=== PATIENT | female | born 1950 | race African-American/Black ===

== ENCOUNTER 2016-11-13 06:58 | Day surgery (SDC) | payer MEDICARE ==
--- NOTE | 2016-11-10 16:31 | Pre-op HX & Phy Repo 2 SIG ---
DATE OF ADMISSION: 11/13/2016 DATE OF SURGERY: 11/13/2016 PREOPERATIVE DIAGNOSIS: Vitreous hemorrhage with traction, left eye. PROCEDURES TO BE PERFORMED: 1. Pars plana vitrectomy. 2. Membrane peeling. 3. Endolaser. 4. Avastin injection, left eye. BRIEF NOTE: This is the first [facility] admission for this patient who is a very nice 66-year-old lady with longstanding diabetic eye disease. She had a history of cataract surgery done in both eyes in the past as well as retinal laser done on both eyes. She has noted worsening of the vision in the left eye and was found to have a significant vitreous hemorrhage with traction. PAST MEDICAL HISTORY: Remarkable for diabetes for at least 30 years. She also has hypertension and elevated cholesterol and thyroid disease. MEDICATIONS: She is maintained on NovoLog, Lantus, Linzess, and gabapentin. ALLERGIES: She has no known allergies. SOCIAL HISTORY: She does not smoke or drink. PHYSICAL EXAMINATION: Best vision at the time of admission was 20/30, -2 on the right eye, counting fingers on the left with pressures of 14 in either eye. The anterior segment showed posterior chamber lenses in either eye. There was no rubeosis. Fundus examination of the right eye showed a mild vitreous hemorrhage down below. There was traction along the supratemporal arcade and on the vertical line between both major arcades temporally. The retina was attached. Extensive peripheral laser was noted. The left fundus showed a very dense vitreous hemorrhage. There was a similar pattern of traction, but the macula appeared attached. A moderate pattern of laser was seen in the periphery. ASSESSMENT: Severe proliferative diabetic retinopathy, both eyes with dense vitreous hemorrhage, left eye. PLAN: The plan is to perform a vitrectomy with membrane dissection, endolaser, and Avastin injection on the left. The risks and benefits of surgery gone over the patient with potential infection, hemorrhage, glaucoma, remote possibility of loss of the eye. The risk of anesthesia was discussed. The patient understands and consents to surgery, which will be performed on Sunday. Raj Coe M.D. DR: CLAUDE JOB#: [id number] CC:
[2016-11-13] VITALS (11 sets, daily range): BP systolic 129–182; BP diastolic 55–86
[~2016-11-13] VITALS: Ht 157.5 cm; Wt 81.6 kg
[~2016-11-13 06:58] MED LIST: Avastin 10mg Inj IVITRE ONE; BSS 15ml BTL ONE; BSS 500ml btl ONE; Bupivacaine 0.75% 30ml vial INJ ONE; Cyclopentolate 1% Opth Sol ONE; Dexamethasone 4mg/ml vial ONE; EPINEPHrine 1mg/1ml Amp ONE; Flurbiprofen 0.03% Opth Sol 2.5ml ONE; Kenalog-10 5ml Inj ONE; Kenalog-40 1ml Vial ONE; Lidocaine 2% MPF 5ml Vial INJ ONE; Maxitrol Opth Oint 3.5gm ONE; Phenylephrine 2.5% Op Soln ONE; Povidone-Iodine 5% opth solution ONE; Pred Forte 1% Opth Susp 1ml ONE; Sodium Hyaluronate 10 mg/ml 0.85ml ONE; Tetracaine 0.5% Opth Soln ONE; Vigamox Opth Soln ONE
[2016-11-13] MEDS: Phenylephrine 2.5% Op Soln LEFT EYE SCH ×3 (07:21→07:38)
[2016-11-13] MEDS: Cyclopentolate 1% Opth Sol LEFT EYE SCH ×3 (07:21→07:38)
[2016-11-13] MEDS: Flurbiprofen 0.03% Opth Sol 2.5ml LEFT EYE SCH ×3 (07:22→07:38)
[2016-11-13] MEDS: Vigamox Opth Soln LEFT EYE SCH ×3 (07:22→07:38)
--- NOTE | 2016-11-13 07:23 | Pre-Procedure Note/Attestation ---
Pre-Procedure Note/Attestation Complete Prior to Procedure Planned Procedure: left Procedure Narrative: PPV, membrane peel, endolaser, Kenalog injection L eye Indications for Procedure Pre-Operative Diagnosis: Vitreous hemorrhage with retinal traction L eye Attestation I attest that I discussed the nature of the procedure; its benefits; risks and complications; and alternatives (and the risks and benefits of such alternatives ), prior to the procedure, with the patient (or the patient's legal product representative). I attest that, if there was a reasonable possibility of needing a blood transfusion, the patient (or the patient's legal product representative) was given the [facility] Services standardized written summary, pursuant to the Abdi Damaris Blood Safety Act ([place] Health and Safety Code # 1645, as amended). I attest that I re-evaluated the patient just prior to the surgery and that there has been no change in the patient's H&P, except as documented below: TERRY DHALIWAL Nov 13, 2016 07:23
[2016-11-13] MEDS ORDERED: Norco 5mg/325mg tab ORAL PRN (07:30)
[2016-11-13] MEDS ORDERED: DiphenhydrAMINE 50mg/ml Inj ONE (07:48)
--- NOTE | 2016-11-13 07:52 | Anethesia Preoperative Eval ---
Anesthesia Pre-op PMH/ROS General Date of Evaluation: Nov 13, 2016 Time of Evaluation: 07:50 Anesthesiologist: mickey ASA Score: ASA 3 Mallampati Score Class I : Soft palate, uvula, fauces, pillars visible Class II: Soft palate, uvula, fauces visible Class III: Soft palate, base of uvula visible Class IV: Only hard plate visible Mallampati Classification: Class III Surgeon: iona Diagnosis: left eye hemorrage Surgical Procedure: pars plana virtrectomy Anesthesia History: none Family History: no anesthesia problems Allergies: Coded Allergies: No Known Allergies (Unverified , 11/07/16) Medications: see eMAR Past Medical History Cardiovascular: Reports: HTN Pulmonary: Denies: COPD, INNA, asthma, other Gastrointestinal/Genitourinary: Denies: CRI, ESRD, GERD, other Neurologic/Psychiatric: Denies: CVA, TIA, dementia, depression/anxiety, other Endocrine: Reports: DM HEENT: Denies: NOORVIK (L), NOORVIK (R), cataract (L), cataract (R), glaucoma, other Hematology/Immune: Denies: DVT, anemia, bleeding disorder, other Musculoskeletal/Integumentary: Denies: DDD, DJD, OA, RA, edema, other Other: obesity Anesthesia Pre-op Phys. Exam Physician Exam Last Vital Signs Date Time Temp Pulse Resp B/P Pulse Ox O2 Delivery O2 Flow Rate FiO2 11/13/16 07:24 97.7 87 17 182/86 100 Room Air Constitutional: NAD Neurologic: CN 2-12 intact Cardiovascular: RRR Respiratory: CTA Gastrointestinal: S/NT/ND Airway Exam Mallampati Classification 3 MO: full Neck: thick ROM: full Dentures: no lower, no upper Anesthesia Pre-op A/P Studies Pre-op Studies: EKG - sr Risk Assessment & Plan Plan: mac Pre-Antibiotics Drug: none CAROL JOE ANIMAL TREATMENT INVESTIGATOR Nov 13, 2016 07:52
[2016-11-13] MEDS ORDERED: CRESTOR10 M2 ORAL (07:55)
[2016-11-13] MEDS ORDERED: HYDRALAZINE HCL25 M1 ORAL (07:55)
[2016-11-13] MEDS ORDERED: AMLODIPINE BESY10 MG ORAL (07:55)
[2016-11-13] MEDS ORDERED: DOCUSATE SODIU100 MG ORAL (07:55)
[2016-11-13] MEDS ORDERED: NOVOLOG100 UNITS1 (07:55)
[2016-11-13] MEDS ORDERED: LANTUS SOL100 UNIT/1 SUBQ (07:55)
[2016-11-13] MEDS ORDERED: GABAPENTIN300 MG ORAL (07:55)
[2016-11-13] MEDS ORDERED: METFORMIN HCL500 M1 ORAL (07:55)
[2016-11-13] MEDS ORDERED: BENAZEPRIL HCL40 MG ORAL (07:55)
[2016-11-13] MEDS ORDERED: LEVOTHYROXINE75 MCG ORAL (07:55)
[2016-11-13] MEDS ORDERED: GLIMEPIRIDE1 MG ORAL (07:55)
[2016-11-13] MEDS ORDERED: LINZESS145 MCG PO (07:55)
[2016-11-13] MEDS ORDERED: fentaNYL 100 mcg/2 mL IV PRN (08:00)
[2016-11-13] MEDS ORDERED: fentaNYL 100 mcg/2 mL IV ONE (08:00)
[2016-11-13] MEDS ORDERED: Lidocaine 1% MPF 10mg/ml 5ml ONE (08:00)
[2016-11-13] MEDS ORDERED: Sterile Water Irrig 1000ml IRRIG ONE (08:00)
[2016-11-13] MEDS ORDERED: Pred Forte 1% Opth Susp 1ml LEFT EYE SCH (08:00)
[2016-11-13] MEDS ORDERED: LR 1000ml ONE (08:00)
[2016-11-13] MEDS ORDERED: NS Irrig 1000ml ONE (08:00)
[2016-11-13] MEDS ORDERED: Midazolam 2mg/2ml Inj ONE (08:00)
[2016-11-13] MEDS ORDERED: Propofol 10mg/ml 20ml IV ONE (08:00)
[2016-11-13] MEDS ORDERED: Indocyanine Green 25mg Inj INJ ONE (08:45)
--- NOTE | 2016-11-13 09:27 | Pre-Procedure Note/Attestation ---
Pre-Procedure Note/Attestation Complete Prior to Procedure Planned Procedure: left Indications for Procedure Pre-Operative Diagnosis: Vitreous hemorrhage with retinal traction L eye Attestation I attest that I discussed the nature of the procedure; its benefits; risks and complications; and alternatives (and the risks and benefits of such alternatives ), prior to the procedure, with the patient (or the patient's legal abrasives sales representative). I attest that, if there was a reasonable possibility of needing a blood transfusion, the patient (or the patient's legal abrasives sales representative) was given the [facility] Services standardized written summary, pursuant to the Abdi Turin Blood Safety Act ([place] Health and Safety Code # 1645, as amended). I attest that I re-evaluated the patient just prior to the surgery and that there has been no change in the patient's H&P, except as documented below: TERRY DHALIWAL Nov 13, 2016 09:26
--- NOTE | 2016-11-13 09:31 | Brief Operative Note ---
Immediate Post Operative Note Operative Note Chief Complaint: Blurred vision L eye Pre-op Diagnosis: Vitreous hemorrhage with retinal traction L eye Procedure: PPV, membrane peel, ICG injection, Kenalog injection, Endolaser (1392 spots), Avastin injection 1.25 mg, gas-fluid exchange (24% SF-6 L eye Post-op Diagnosis: same as pre-op plus - Stage IV macular hole noted when blood and posterior traction removed Surgeon: Carolin Bonded Strand Operator: Mckayla Anesthesiologist: Olive Bolden CRNA Anesthesia: MAC Specimen: none Complications: none Condition: stable Estimated Blood Loss: none Implant(s) used?: No - Stage IV macular hole noted and treated appropriately during surgery TERRY DHALIWAL Nov 13, 2016 09:31
--- NOTE | 2016-11-13 12:52 | 48 Hour Post Anesthesia Eval ---
Post Anesthesia Evaluation Procedure: pars plana virtectomy Date of Evaluation: Nov 13, 2016 Time of Evaluation: 12:51 Blood Pressure Systolic: 130 0: 60 Pulse Rate: 70 Respiratory Rate: 14 O2 Sat by Pulse Oximetry: 100 Airway: patent Nausea: No Vomiting: No Hydration Status: adequate Cardiopulmonary Status: stable Mental Status/LOC: patient returned to baseline Post-Anesthesia Complications: none Follow-up care needed: N/A CAROL JOE CRNA Nov 13, 2016 12:52
--- NOTE | 2016-11-13 12:53 | Immediate Post-Op Evaluation ---
Immediate Post-Op Evalulation Immediate Post-Op Evalulation Procedure: pars plana virtectomy Date of Evaluation: Nov 13, 2016 Time of Evaluation: 09:25 IV Fluids: 500 Blood Pressure Systolic: 137 Blood Pressure Diastolic: 73 Pulse Rate: 74 Respiratory Rate: 14 O2 Sat by Pulse Oximetry: 99 Nausea: No Vomiting: No Complications none Patient Status: awake Hydration Status: adequate Drug: none CAROL JOE CRNA Nov 13, 2016 12:53
--- NOTE | 2016-11-13 13:45 | Operative Note - Dictated ---
DATE OF OPERATION: 11/13/2016 PREOPERATIVE DIAGNOSIS: Vitreous hemorrhage with traction, left eye. POSTOPERATIVE DIAGNOSES: Vitreous hemorrhage with traction, left eye with stage IV macular hole discovered after blood was removed. PROCEDURES PERFORMED: 1. Pars plana vitrectomy. 2. Membrane peel. 3. Kenalog injection. 4. ICG injection. 5. Gas fluid exchange. 6. Avastin injection, left eye. SURGEON: Raj Coe M.D. WARDROBE CONSULTANT: Dr. Be Block. ANESTHESIOLOGIST: Olive Cancino, nurse real estate transaction manager. JUSTIFICATION FOR SURGERY: This 66-year-old lady with a long history of diabetes developed a nonclearing vitreous hemorrhage with decreased vision in the left eye. BRIEF NOTE: The patient was brought to the operating room, placed on operating room table in supine position. After a time-out was performed and agreed upon by the staff and initial monitoring secured by nurse Cancino, retrobulbar and Van Lint blocks were given in the standard way. When the blocks have taken effect, she was prepped and draped in normal manner. A lid speculum was inserted into the left eye. Using a 23-gauge trocar system, cannulas were placed in all except infranasal quadrant. Infusion secured inferotemporally. Vitrectomy was begun posterior to the intra-ocular lens. Adhesions between vitreous and capsule were removed and a central core vitrectomy completed. Using Kenalog to identify the vitreous, peripheral vitrectomy was done leaving a small vitreous skirt and posterior attachments of vitreous to retina were also released. A posterior viewing lens was then inserted and traction noted along the major arcades and overlying the optic nerve were gently dissected and removed with a cutter and forceps. During the dissection it was noted that there was a pre-existing stage IV macular hole. It was decided that the hole should be treated during this procedure to facilitate recovery of vision. Prior to treating the hole, the Endolaser was brought into the eye and a power of 0.3 rhodes duration 0.2 seconds, a total of 1392 lesions were applied in a broad band in the periphery where the retina was likely treated and also surrounding the areas of traction. With posterior viewing lens in place, ICG dye diluted in D5 was injected onto the posterior pole. A total of two drops were used, staining was effected and all the residual ICG was removed. There was noted to be partially disrupted internal limiting lamina. The forceps were used to gain control on the ends of this membrane, which was peeled to form roughly a 3 disc diameter area overlying the macula and excluding the fovea. No problems were encountered. The Anuel commercial hvac technician was then introduced and, with gentle manipulation, the edges of the hole were brought together in a circular fashion and closed. An air-fluid exchange was then performed followed by a gas-gas exchange using a 24% mixture of SF6. The peripheral scleral depression showed no breaks, tears, or detachments. The superior cannulas were removed from the eye and these wounds were closed with a single suture of 8-0 Vicryl. The eye was inflated to normal tension and the infusion line removed after which Avastin 1.25 mg was injected. The gas line was reattached and the eye again brought to normal tension after which the last cannula was removed. This wound was also secured with 8-0 Vicryl. Subconjunctival Decadron and gentamicin were then injected and Maxitrol and atropine ointments were instilled. The eye was patched and shielded and the patient was taken to recovery in excellent condition, there were no complications, but please note that during the procedure a macular hole was discovered, which was not seen preoperatively due to the dense vitreous hemorrhage. This was repaired appropriately. s Raj Coe M.D. DR: CLAUDE JOB#: [id number] CC: NELA
== END 2016-11-13 11:40 | disposition home or self-care (01) ==
LOC: SUR 06:58
DX: H43.12 Vitreous hemorrhage, left eye (principal); E11.3522 Type 2 diabetes mellitus with proliferative diabetic retinopathy with traction retinal detachment involving the macula, left eye; Z79.4 Long term (current) use of insulin; I10 Essential (primary) hypertension; E78.00 Pure hypercholesterolemia, unspecified; E07.9 Disorder of thyroid, unspecified; E66.9 Obesity, unspecified; Z68.32 Body mass index [BMI] 32.0-32.9, adult
CPT/HCPCS: 67042; 82962; J0171; J1100; J1200; J2250; J2704; J3010; J3301; J3470; J3490; J7120; J9035; 94003; 94150

== ENCOUNTER 2017-01-22 05:17 | Day surgery (SDC) | payer MEDICARE ==
--- NOTE | 2017-01-19 21:30 | Pre-op HX & Phy Repo 2 SIG ---
DATE OF ADMISSION: 01/22/2017 DATE OF SURGERY: 01/22/2017 PREOPERATIVE DIAGNOSIS: Recurrent vitreous hemorrhage, left eye. Brief Note: This is the second [facility] admission form this patient, who is a very nice 66-year-old lady with a long history of severe proliferative diabetic retinopathy. The patient had a vitrectomy performed on the left eye on 11/03/2016, but has had recurrent hemorrhaging and was admitted for a washout. Past Ocular History: Also remarkable for cataract surgery, which was previously done in both eyes as well as extensive panretinal laser bilaterally. Medical History: Notable for diabetes for at least 30 years as well as hypertension and elevated cholesterol as well as thyroid disease. ALLERGIES: She has no known allergies. Medications: She is currently on amlodipine, NovoLog, Lantus, and gabapentin. Physical Examination: Best vision at the time of admission was 20/40 in the right eye and hand motions in the left with pressures of 14 and 13. The anterior segments appeared quiet. There were posterior chamber lenses in either eye. Fundus of the right eye showed traction along the supratemporal arcade and out temporally. No vitreous hemorrhage was seen down below. The left fundus was poorly seen secondary to a dense vitreous hemorrhage. An ultrasound done on the left eye at the time of the last visit showed a dense vitreous hemorrhage without evidence of retinal detachment. Assessment: Proliferative diabetic retinopathy with recurrent vitreous hemorrhage, left eye. Plan: The plan is to do a pars plana vitrectomy with washout on the left eye. Endolaser and Avastin will be done as needed. The risks and benefits of surgery were gone over with the patient including potential for infection, recurrent hemorrhage, glaucoma, and remote possibility of loss of the eye. The risk of anesthesia was discussed. The patient understands and consents to the surgery, which will be performed on Sunday. Raj Coe M.D. DR: JOHN JOB#: [id number] CC:
[~2017-01-22] VITALS: Ht 157.5 cm; Wt 81.6 kg
[2017-01-22] VITALS (8 sets, daily range): BP systolic 117–172; BP diastolic 62–81
[~2017-01-22 05:17] MED LIST changes: +AMLODIPINE BESY10 MG ORAL; -Avastin 10mg Inj IVITRE ONE; +BENAZEPRIL HCL40 MG ORAL; -BSS 15ml BTL ONE; -BSS 500ml btl ONE; -Bupivacaine 0.75% 30ml vial INJ ONE; +CRESTOR10 M2 ORAL; -Cyclopentolate 1% Opth Sol ONE; +DOCUSATE SODIU100 MG ORAL; -Dexamethasone 4mg/ml vial ONE; -EPINEPHrine 1mg/1ml Amp ONE; -Flurbiprofen 0.03% Opth Sol 2.5ml ONE; +GABAPENTIN300 MG ORAL; +GLIMEPIRIDE1 MG ORAL; +HYDRALAZINE HCL25 M1 ORAL; -Kenalog-10 5ml Inj ONE; -Kenalog-40 1ml Vial ONE; +LANTUS SOL100 UNIT/1 SUBQ; +LEVOTHYROXINE75 MCG ORAL; +LINZESS145 MCG PO; -Lidocaine 2% MPF 5ml Vial INJ ONE; +METFORMIN HCL500 M1 ORAL; -Maxitrol Opth Oint 3.5gm ONE; +NOVOLOG100 UNITS1; -Phenylephrine 2.5% Op Soln ONE; -Povidone-Iodine 5% opth solution ONE; -Pred Forte 1% Opth Susp 1ml ONE; -Sodium Hyaluronate 10 mg/ml 0.85ml ONE; -Tetracaine 0.5% Opth Soln ONE; -Vigamox Opth Soln ONE
[2017-01-22] MEDS ORDERED: Avastin 10mg Inj IVITRE ONE (06:00)
[2017-01-22] MEDS ORDERED: Pred Forte 1% Opth Susp 1ml LEFT EYE SCH (06:00)
[2017-01-22] MEDS ORDERED: Flurbiprofen 0.03% Opth Sol 2.5ml LEFT EYE SCH (06:00)
--- NOTE | 2017-01-22 06:29 | Pre-Procedure Note/Attestation ---
Pre-Procedure Note/Attestation Complete Prior to Procedure Planned Procedure: left Procedure Narrative: PPV, endolaser, Avastin injection L eye Indications for Procedure Pre-Operative Diagnosis: Vitreous hemorrhage L eye, recurrent Attestation I attest that I discussed the nature of the procedure; its benefits; risks and complications; and alternatives (and the risks and benefits of such alternatives ), prior to the procedure, with the patient (or the patient's legal open claims representative). I attest that, if there was a reasonable possibility of needing a blood transfusion, the patient (or the patient's legal open claims representative) was given the [facility] Services standardized written summary, pursuant to the Abdi Damaris Blood Safety Act ([place] Health and Safety Code # 1645, as amended). I attest that I re-evaluated the patient just prior to the surgery and that there has been no change in the patient's H&P, except as documented below: TERRY DHALIWAL Jan 22, 2017 06:29
[2017-01-22] MEDS: Vigamox Opth Soln 3ml LEFT EYE SCH ×3 (06:43→07:00)
[2017-01-22] MEDS: Phenylephrine 2.5% Op 2ml Soln LEFT EYE SCH ×3 (06:43→07:00)
[2017-01-22] MEDS: Cyclopentolate 1% Opth Sol 2ml LEFT EYE SCH ×3 (06:43→06:59)
[2017-01-22] MEDS: Ketorolac Tromethamine Opth 5ml Soln LEFT EYE SCH ×3 (06:44→07:00)
[2017-01-22 06:50] LABS: BASOPHILS % (AUTO) 0.7 % (0.0-2.0); EOSINOPHILS % (AUTO) 1.4 % (0.0-3.0); LYMPHOCYTES % (AUTO) 44.8 % (20.0-45.0); MEAN CORPUSCULAR HEMOGLOBIN 29.4 PG (27.0-31.0); MEAN CORPUSCULAR HGB CONC 33.8 G/DL (32.0-36.0); MEAN CORPUSCULAR VOLUME 87 FL (80-99); MEAN PLATELET VOLUME 6.5 FL (6.5-10.1); MONOCYTES % (AUTO) 8.2 % (1.0-10.0); PLATELET COUNT 321 K/UL (150-450); RED BLOOD COUNT 4.11 M/UL (4.20-5.40); RED CELL DISTRIBUTION WIDTH 11.7 % (11.6-14.8)
[2017-01-22] MEDS ORDERED: Kenalog-40 1ml Vial ONE (07:09)
[2017-01-22] MEDS ORDERED: Maxitrol Opth Oint 3.5gm ONE (07:09)
[2017-01-22] MEDS ORDERED: BSS 500ml btl ONE (07:09)
[2017-01-22] MEDS ORDERED: Dexamethasone 4mg/ml vial ONE (07:10)
[2017-01-22] MEDS ORDERED: EPINEPHrine 1mg/1ml Amp ONE (07:10)
[2017-01-22] MEDS ORDERED: Kenalog-10 5ml Inj ONE (07:10)
[2017-01-22] MEDS ORDERED: Povidone-Iodine 5% opth solution ONE (07:10)
[2017-01-22] MEDS ORDERED: Tetracaine 0.5% Opth 4ml Soln ONE (07:10)
[2017-01-22] MEDS ORDERED: Bupivacaine 0.75% 30ml vial INJ ONE (07:11)
[2017-01-22] MEDS ORDERED: Lidocaine 2% MPF 5ml Vial INJ ONE (07:11)
[2017-01-22] MEDS ORDERED: BSS 15ml BTL ONE (07:11)
[2017-01-22] MEDS ORDERED: Sodium Hyaluronate 10 mg/ml 0.85ml ONE (07:11)
[2017-01-22 07:13] LABS: ANION GAP 10 (5-15); CALCIUM 9.1 MG/DL (8.5-10.1); CARBON DIOXIDE 25 MMOL/L (21-32); CHLORIDE 100 MMOL/L (98-107); CREATININE 1.3 MG/DL (0.55-1.30); GLOMERULAR FILTRATION RATE 49.6 mL/min (>60); POTASSIUM 3.3 MMOL/L (3.5-5.1); SODIUM 135 MMOL/L (136-145)
--- NOTE | 2017-01-22 07:20 | Anethesia Preoperative Eval ---
Anesthesia Pre-op PMH/ROS General Date of Evaluation: Jan 22, 2017 Time of Evaluation: 07:21 Anesthesiologist: Shen ASA Score: ASA 3 Mallampati Score Class I : Soft palate, uvula, fauces, pillars visible Class II: Soft palate, uvula, fauces visible Class III: Soft palate, base of uvula visible Class IV: Only hard plate visible Mallampati Classification: Class III Surgeon: Carolin Diagnosis: Vitreous Hemorrage, OS Surgical Procedure: Vitrectomy OS Anesthesia History: none Family History: no anesthesia problems Allergies: Coded Allergies: No Known Allergies (Unverified , 11/07/16) Medications: see eMAR Past Medical History Cardiovascular: Reports: HTN, other - HL Endocrine: Reports: DM, hypothyroidism HEENT: Reports: cataract (L), cataract (R) Hematology/Immune: Reports: anemia Other: obesity - BMI 34 Anesthesia Pre-op Phys. Exam Physician Exam Last Vital Signs Date Time Temp Pulse Resp B/P (MAP) Pulse Ox O2 Delivery O2 Flow Rate FiO2 01/22/17 05:42 98.2 83 17 172/81 97 Room Air Constitutional: NAD Neurologic: CN 2-12 intact Cardiovascular: RRR Respiratory: CTA Gastrointestinal: S/NT/ND Airway Exam Mallampati Score: Class III MO: limited ROM: limited Teeth: missing, intact Anesthesia Pre-op A/P Labs Hematology Test 01/22/17 05:45 White Blood Count 9.0 K/UL (4.8-10.8) Red Blood Count 4.11 M/UL (4.20-5.40) L Hemoglobin 12.1 G/DL (12.0-16.0) Hematocrit 35.8 % (37.0-47.0) L Mean Corpuscular Volume 87 FL (80-99) Mean Corpuscular Hemoglobin 29.4 PG (27.0-31.0) Mean Corpuscular Hemoglobin Concent 33.8 G/DL (32.0-36.0) Red Cell Distribution Width 11.7 % (11.6-14.8) Platelet Count 321 K/UL (150-450) Mean Platelet Volume 6.5 FL (6.5-10.1) Neutrophils (%) (Auto) 45.0 % (45.0-75.0) Lymphocytes (%) (Auto) 44.8 % (20.0-45.0) Monocytes (%) (Auto) 8.2 % (1.0-10.0) Eosinophils (%) (Auto) 1.4 % (0.0-3.0) Basophils (%) (Auto) 0.7 % (0.0-2.0) Chemistry Test 01/22/17 05:45 Sodium Level Pending Potassium Level Pending Chloride Level Pending Carbon Dioxide Level Pending Blood Urea Nitrogen Pending Creatinine Pending Estimat Glomerular Filtration Rate Pending Glucose Level Pending Calcium Level Pending Risk Assessment & Plan Assessment: ASA 3 Plan: GA Status Change Before Surgery: Bernardo Bledsoe MD Jan 22, 2017 07:20
[2017-01-22] MEDS ORDERED: LR 1000ml 1,000 ML IVLG SCH (07:21)
--- NOTE | 2017-01-22 07:22 | Immediate Post-Op Evaluation ---
Immediate Post-Op Evalulation Immediate Post-Op Evalulation Procedure: Vitrectomy OS Date of Evaluation: Jan 22, 2017 Time of Evaluation: 08:39 IV Fluids: 300 LR Blood Products: 0 Estimated Blood Loss: 1 Urinary Output: 0 Blood Pressure Systolic: 127 Blood Pressure Diastolic: 66 Pulse Rate: 72 Respiratory Rate: 16 O2 Sat by Pulse Oximetry: 99 Temperature (Fahrenheit): 97.6 Pain Score (1-10): 1 Nausea: No Vomiting: No Complications 0 Patient Status: awake, reacts, patent, none Hydration Status: adequate Benrardo Gotti MD Jan 22, 2017 07:22
--- NOTE | 2017-01-22 07:23 | 48 Hour Post Anesthesia Eval ---
Post Anesthesia Evaluation Procedure: Vitrectomy OS Date of Evaluation: Jan 22, 2017 Time of Evaluation: 10:44 Blood Pressure Systolic: 141 0: 72 Pulse Rate: 70 Respiratory Rate: 18 Temperature (Fahrenheit): 98.2 O2 Sat by Pulse Oximetry: 99 Airway: patent Nausea: No Vomiting: No Pain Intensity: 0 Hydration Status: adequate Cardiopulmonary Status: Stable Mental Status/LOC: patient returned to baseline Follow-up Care/Observations: 0 Post-Anesthesia Complications: 0 Follow-up care needed: ready to discharge Bernardo Gotti MD Jan 22, 2017 07:23
[2017-01-22] MEDS ORDERED: Ketorolac 30mg Inj IV PRN (07:30)
[2017-01-22] MEDS ORDERED: oxyCODONE HCL/Acetaminophen 5/325mg ORAL PRN (07:30)
[2017-01-22] MEDS ORDERED: Midazolam 2mg/2ml Inj IVP PRN (07:30)
[2017-01-22] MEDS ORDERED: LORazepam Inj 2mg/ml 1ml IV PRN (07:30)
[2017-01-22] MEDS ORDERED: Hydromorphone 0.5mg/0.5ml inj IVP PRN (07:30)
[2017-01-22] MEDS ORDERED: Lidocaine 1% MPF 10mg/ml 5ml ONE (07:30)
[2017-01-22] MEDS ORDERED: Norco 5mg/325mg tab ORAL PRN ×2 (07:30→14:01)
[2017-01-22] MEDS ORDERED: NS Irrig 1000ml ONE (07:30)
[2017-01-22] MEDS ORDERED: Midazolam 2mg/2ml Inj ONE (07:30)
[2017-01-22] MEDS ORDERED: LR 1000ml ONE (07:30)
[2017-01-22] MEDS ORDERED: Sterile Water Irrig 1000ml IRRIG ONE (07:30)
[2017-01-22] MEDS ORDERED: Alfentanil 2ml Inj ONE (07:30)
[2017-01-22] MEDS ORDERED: Propofol 200mg/20ml IV ONE (07:30)
[2017-01-22] MEDS ORDERED: fentaNYL 100 mcg/2 mL IV PRN (07:30)
[2017-01-22] MEDS ORDERED: Atropine Inj 1mg/10ml Syr IV PRN (07:30)
[2017-01-22] MEDS ORDERED: DiphenhydrAMINE 50mg/ml Inj IVP PRN (07:30)
[2017-01-22] MEDS ORDERED: Ketorolac 60mg Inj IV PRN (07:30)
[2017-01-22] MEDS ORDERED: Norco 7.5mg/325mg tab ORAL PRN (07:30)
[2017-01-22] MEDS ORDERED: Metoclopramide 10mg/2ml Inj IVP PRN (07:30)
--- NOTE | 2017-01-22 08:28 | Brief Operative Note ---
Immediate Post Operative Note Operative Note Chief Complaint: Cloudy vision L eye Pre-op Diagnosis: Vitreous hemorrhage L eye, recurrent Procedure: PPV, vitreous washout, endocautery, endolaser 464 spots, Avastin injection 1.25mg L eye Post-op Diagnosis: same as pre-op Surgeon: iona Anesthesiologist: Shen Anesthesia: MAC Specimen: none Complications: none Condition: stable Fluids: None Estimated Blood Loss: none Drains: none Implant(s) used?: No TERRY DHALIWAL Jan 22, 2017 08:28
--- NOTE | 2017-01-22 18:30 | Operative Note - Dictated ---
DATE OF OPERATION: 01/22/2017 PREOPERATIVE DIAGNOSIS: Vitreous hemorrhage, recurrent, left eye. POSTOPERATIVE DIAGNOSIS: Vitreous hemorrhage, recurrent, left eye. PROCEDURES: 1. Pars plana vitrectomy. 2. Endo cautery. 3. Endolaser. 4. Avastin injection, left eye. SURGEON: Raj Coe M.D. BASEBOARD HEATING INSTALLER: None. ANESTHESIA: Local sedation. ANESTHESIOLOGIST: Bernardo Gotti M.D. JUSTIFICATION FOR SURGERY: This is a 66-year-old lady with long history of diabetes who developed vitreous hemorrhage with traction and was operated roughly 5 weeks ago. The hemorrhage recurred and has failed to clear. She is admitted for repeat vitrectomy. BRIEF NOTE: The patient was brought to the operating room and placed on OR table in supine position. After time-out was performed and agreed upon by the staff, an initial monitoring secured by Dr. Gotti, retrobulbar and Van Lint blocks were given in standard way. When the blocks had taken effect, she was prepped and draped in the normal manner. A lid speculum was inserted into the left eye. Using a 23-gauge trocar system, cannulae were placed in all except infranasal quadrant. Infusion secured inferotemporally. Vitrectomy was begun posterior to the lens implant removing adherent residual vitreous strands. Central washout was performed. There was noted to be residual hydrated vitreous inferiorly and nasally and this was gently suctioned. An area of mild preretinal fibrosis with elevated vessels was noted inferior to the inferotemporal arcade. Another area was noted superior to the superotemporal arcade. These were dissected and flushed with the retina. Small amounts of bleeding were then controlled with Endo cautery until no residual leaks were seen. Scleral depression showed no peripheral breaks, tears, or detachments. The endolaser was then brought into the eye and power of 0.3 rhodes and duration of 0.2 seconds, a total of 464 lesions were applied surrounding the areas of newly liberated preretinal fibrosis and also treating areas that were lightly lasered in the past. No problems were encountered. At this juncture, the two superior cannulae were removed and these sclerotomies closed with 8-0 Vicryl suture in a single surgeon's knot. Avastin was then injected through the infusion cannula and after the eye was reinflated, this cannula was also removed and the sclerotomy closed similarly. Subconjunctival Decadron and gentamicin were then injected and Maxitrol and atropine ointments were instilled. The eye was patched and shielded. The patient was taken to recovery in excellent condition. There were no complications. Raj Coe M.D. DR: Milton JOB#: [id number] CC: Raj Coe M.D.; Fax#: [phone]
--- NOTE | 2017-01-23 06:45 | Pre-op HX & Phy Repo 2 SIG ---
DATE OF ADMISSION: 01/22/2017 PRESURGICAL INTERNAL MEDICINE HISTORY AND PHYSICAL REASON FOR EVALUATION: I was asked by Dr. Raj Coe to see this 66-year-old female, who is going for elective surgery on the left eye. The patient has a vitreous hemorrhage of left eye. The patient was examined. Chart was reviewed. This is the second visit to [facility]. The patient has had an eye surgery in October 2016. PAST MEDICAL HISTORY: Remarkable for insulin-dependent diabetes mellitus, hypertension, hypothyroidism, chronic constipation, and overweight. No history of stroke or seizures. Denies history of chest pain, palpitation, or heart attack. No history of respiratory problem, asthma, or bronchitis. Denies history of anemia. No history of hepatitis. No history of GI bleeding or gastritis. No ulcer. No GERD. Denies history of renal failure. PAST SURGICAL HISTORY: Remarkable for eye surgery in October 2016 and thyroidectomy. CURRENT MEDICATIONS: NovoLog, Lantus, Linzess, levothyroxine, vitamin D and calcium supplement, amlodipine 10 mg daily, benazepril, glimepiride, DSS 100 mg daily, Crestor, and metformin. ALLERGIES: Not known to medication, food, or latex. FAMILY HISTORY: Mother from heart attack. Father has diabetes mellitus. Brother had cancer. HABITS: Denies history of smoke or alcohol habits. No street drugs. PHYSICAL EXAMINATION: GENERAL: Alert, well-developed, well-nourished, middle-aged female in her 60s, in no acute distress. VITAL SIGNS: Blood pressure 172/81, temperature 98.2 degrees, pulse 83, and respirations 17. The patient's BMI is 52.9 kg/m2. SKIN: Warm and dry. Diabetic skin atrophy on the lower extremity herrera . HEENT: Head, normocephalic. Ears, clear. Eyes, full description per Dr. Raj Coe. Mouth, clear and moist. No dentures. NECK: Supple. No jugular distention. Carotid artery +2. Scar on the anterior wall of neck post thyroidectomy. CHEST: No deformity or asymmetry. LUNGS: Clear to auscultation and percussion. No rales or rhonchi. HEART: Sinus rhythm. No ectopy. No murmur. No S3 or S4. ABDOMEN: Soft and obese. Liver and spleen not enlarged. EXTREMITIES: No edema. No varicose veins. No calf tenderness. GENITOURINARY TRACT: CVA nontender. No dysuria. NEUROLOGIC: No tremor. No nystagmus. DIAGNOSTIC DATA: Electrocardiogram, sinus rhythm, 67 beats per minute, otherwise, normal EKG. The patient did not eat or drink from 9 p.m. last night. Fasting blood sugar 174 mg/dL. IMPRESSION: 1. Vitreous hemorrhage, left eye. 2. Hypertension without complication. 3. Insulin-dependent diabetes mellitus, fairly controlled. 4. Hypothyroidism. 5. Obesity. 6. Chronic constipation. PLAN: Pars plana vitrectomy and wash out, left eye, per Dr. Raj Coe. CONCLUSION: The patient's blood pressure is slightly elevated, asymptomatic. The patient's blood sugar fasting also above normal limits. The patient is alert and awake. The patient did not eat or drink from 9 p.m. last night and the patient's condition optimized for surgery. Thank you very much, Dr. Coe, for the privilege to participate in presurgical care of this interesting patient. Jhoana Evans M.D. DR: KAIT JOB#: [id number] CC:
== END 2017-01-22 10:20 | disposition home or self-care (01) ==
LOC: SUR 05:17
DX: H43.12 Vitreous hemorrhage, left eye (principal); I10 Essential (primary) hypertension; E03.9 Hypothyroidism, unspecified; E11.3592 Type 2 diabetes mellitus with proliferative diabetic retinopathy without macular edema, left eye; K59.09 Other constipation; E66.9 Obesity, unspecified; Z68.32 Body mass index [BMI] 32.0-32.9, adult; Z79.4 Long term (current) use of insulin; Z79.84 Long term (current) use of oral hypoglycemic drugs; Z83.3 Family history of diabetes mellitus; Z80.9 Family history of malignant neoplasm, unspecified; E07.9 Disorder of thyroid, unspecified
CPT/HCPCS: 36415; 67040; 80048; 82962; 85025; J0171; J1100; J2250; J2704; J3470; J3490; J7120; J9035; 94003; 94150

== ENCOUNTER 2017-02-28 06:37 | Day surgery (SDC) | payer MEDICARE ==
--- NOTE | 2017-02-27 18:00 | Pre-op HX & Phy Repo 2 SIG ---
DATE OF ADMISSION: 02/28/2017 DATE OF SURGERY: 02/28/2017. PREOPERATIVE DIAGNOSIS: Vitreous hemorrhage, right eye. BRIEF NOTE: This is a third [facility] admission for this patient, who is a very nice 66-year-old lady with severe proliferative diabetic retinopathy. She has undergone a primary vitrectomy in the left eye earlier this year followed by washout on the left eye in January of this year. She has been seeing streaks of blood in the right eye for some time and was admitted for a vitrectomy on that side. PAST OCULAR HISTORY: Remarkable for prior cataract surgery in both eyes as well as widespread laser and injections. MEDICAL HISTORY: Remarkable for diabetes, hypertension, thyroid disease and elevated cholesterol. MEDICATIONS: She is on insulin injections as well as oral medications for her diabetes, for hypertension and thyroid disease. ALLERGIES: She has no known allergies. PHYSICAL EXAMINATION: Best vision was 20/60 -1 in the right eye and 20/40 in the left with pressures of 14. The anterior segments showed posterior chamber lenses bilaterally. There is no rubeosis. Fundus examination of the right eye showed a moderately dense vitreous hemorrhage. There was traction along the supratemporal arcade and between the superior and inferior arcades temporally. The retina was otherwise attached. The left fundus showed clearing vitreous hemorrhage with a broad pattern of panretinal photocoagulation. There was residual mild haze. ASSESSMENT: Vitreous hemorrhage with traction, right eye. PLAN: The plan is to perform a pars plana vitrectomy with membrane dissection, endolaser, and Avastin injection on the right. The risks and benefits of the surgery gone over the patient with potential infection, recurrent hemorrhaging, loss of vision and remote possibility of loss of the eye. The risk of anesthesia was discussed. The patient also understands and consents to the surgery, which will be performed on tomorrow morning. Raj Coe M.D. DR: MARIMAR JOB#: [id number] CC:
[~2017-02-28] VITALS: Ht 158.8 cm; Wt 85.7 kg
[2017-02-28] VITALS (11 sets, daily range): BP systolic 115–147; BP diastolic 58–77
--- NOTE | 2017-02-28 06:10 | Pre-Procedure Note/Attestation ---
Pre-Procedure Note/Attestation Complete Prior to Procedure Planned Procedure: right Procedure Narrative: Pars plana vitrectomy, membrane peel, endolaser, possible gas injection, Avastin injection Right eye Indications for Procedure Pre-Operative Diagnosis: Vitreous hemorrhage with diabetic traction elevation Right eye Attestation I attest that I discussed the nature of the procedure; its benefits; risks and complications; and alternatives (and the risks and benefits of such alternatives ), prior to the procedure, with the patient (or the patient's legal exhibit display representative). I attest that, if there was a reasonable possibility of needing a blood transfusion, the patient (or the patient's legal exhibit display representative) was given the [place] [employer] standardized written summary, pursuant to the Abdi Maybrook Blood Safety Act ([place] Health and Safety Code # 1645, as amended). I attest that I re-evaluated the patient just prior to the surgery and that there has been no change in the patient's H&P, except as documented below: TERRY DHALIWAL Feb 28, 2017 06:10
[~2017-02-28 06:37] MED LIST changes: +BSS 15ml BTL ONE; +BSS 500ml btl ONE; +Bupivacaine 0.75% 30ml vial INJ ONE; +Dexamethasone 4mg/ml vial ONE; +EPINEPHrine 1mg/1ml Amp ONE; +Kenalog-10 5ml Inj ONE; +Kenalog-40 1ml Vial ONE; +Lidocaine 2% MPF 5ml Vial INJ ONE; +Maxitrol Opth Oint 3.5gm ONE; +Norco 5mg/325mg tab ORAL PRN; +Povidone-Iodine 5% opth solution ONE; +Pred Forte 1% Opth Susp 1ml RIGHT EYE SCH; +Sodium Hyaluronate 10 mg/ml 0.85ml ONE; +Tetracaine 0.5% Opth 4ml Soln ONE
[2017-02-28] MEDS ORDERED: Avastin 10mg Inj IVITRE ONE (07:30)
[2017-02-28] MEDS ORDERED: Vigamox Opth Soln 3ml ONE (07:39)
[2017-02-28] MEDS ORDERED: Flurbiprofen 0.03% Opth Sol 2.5ml ONE (07:40)
[2017-02-28] MEDS ORDERED: Phenylephrine 2.5% Op 2ml Soln ONE (07:40)
[2017-02-28] MEDS ORDERED: Cyclopentolate 1% Opth Sol 2ml ONE (07:40)
[2017-02-28] MEDS: Cyclopentolate 1% Opth Sol 2ml RIGHT EYE SCH ×3 (07:42→08:17)
[2017-02-28] MEDS: Flurbiprofen 0.03% Opth Sol 2.5ml RIGHT EYE SCH ×3 (07:43→08:17)
[2017-02-28] MEDS: Vigamox Opth Soln 3ml RIGHT EYE SCH ×3 (07:43→08:18)
[2017-02-28] MEDS: Phenylephrine 2.5% Op 2ml Soln RIGHT EYE SCH ×3 (07:43→08:17)
[2017-02-28] MEDS ORDERED: LEVEMIR FL100 UNIT/1 SUBQ ×2 (08:00)
[2017-02-28 08:14] LABS: BASOPHILS % (AUTO) 1.2 % (0.0-2.0); EOSINOPHILS % (AUTO) 1.5 % (0.0-3.0); LYMPHOCYTES % (AUTO) 34.6 % (20.0-45.0); MEAN CORPUSCULAR HEMOGLOBIN 28.8 PG (27.0-31.0); MEAN CORPUSCULAR VOLUME 87 FL (80-99); MEAN PLATELET VOLUME 6.3 FL (6.5-10.1); MONOCYTES % (AUTO) 10.4 % (1.0-10.0); NEUTROPHILS % (AUTO) 52.3 % (45.0-75.0); PLATELET COUNT 349 K/UL (150-450); RED BLOOD COUNT 4.03 M/UL (4.20-5.40); RED CELL DISTRIBUTION WIDTH 11.6 % (11.6-14.8); WHITE BLOOD COUNT 8.5 K/UL (4.8-10.8)
[2017-02-28] MEDS ORDERED: ASPIRIN81 MG ORAL (08:16)
[2017-02-28 08:24] LABS: ANION GAP 8 mmol/L (5-15); CALCIUM 8.7 MG/DL (8.5-10.1); CARBON DIOXIDE 27 MMOL/L (21-32); CHLORIDE 105 MMOL/L (98-107); CREATININE 1.5 MG/DL (0.55-1.30); GLOMERULAR FILTRATION RATE 42.1 mL/min (>60); POTASSIUM 3.5 MMOL/L (3.5-5.1); SODIUM 139 MMOL/L (136-145)
--- NOTE | 2017-02-28 08:46 | Anethesia Preoperative Eval ---
Anesthesia Pre-op PMH/ROS General Date of Evaluation: Feb 28, 2017 Time of Evaluation: 08:50 Anesthesiologist: Meli ASA Score: ASA 3 Mallampati Score Class I : Soft palate, uvula, fauces, pillars visible Class II: Soft palate, uvula, fauces visible Class III: Soft palate, base of uvula visible Class IV: Only hard plate visible Mallampati Classification: Class III Surgeon: Carolin Diagnosis: right eye vitreous hemorhage Surgical Procedure: Right eye vitrectomy with Avastin inj Anesthesia History: none Family History: no anesthesia problems Allergies: Coded Allergies: No Known Allergies (Unverified , 02/27/17) Past Medical History Cardiovascular: Reports: HTN, other - hyperlipids Pulmonary: Denies: asthma, COPD, INNA, other Gastrointestinal/Genitourinary: Denies: GERD, CRI, ESRD, other Neurologic/Psychiatric: Denies: dementia, CVA, depression/anxiety, TIA, other Endocrine: Reports: DM, hypothyroidism HEENT: Reports: cataract (L), cataract (R) Hematology/Immune: Denies: anemia, DVT, bleeding disorder, other Musculoskeletal/Integumentary: Denies: OA, RA, DJD, DDD, edema, other Other: obesity Anesthesia Pre-op Phys. Exam Physician Exam Last Vital Signs Date Time Temp Pulse Resp B/P (MAP) Pulse Ox O2 Delivery O2 Flow Rate FiO2 02/28/17 07:48 97.7 79 20 137/71 98 Room Air Constitutional: NAD Neurologic: CN 2-12 intact Cardiovascular: RRR Respiratory: CTA Gastrointestinal: S/NT/ND Airway Exam Mallampati Score: Class III MO: full Neck: no neck ROM: full Teeth: missing - missing teeth all bottoms, missing top teeth: 1 front and few on top right side Dentures: no upper, no lower Anesthesia Pre-op A/P Labs Hematology Test 02/28/17 08:00 White Blood Count 8.5 K/UL (4.8-10.8) Red Blood Count 4.03 M/UL (4.20-5.40) L Hemoglobin 11.6 G/DL (12.0-16.0) L Hematocrit 35.1 % (37.0-47.0) L Mean Corpuscular Volume 87 FL (80-99) Mean Corpuscular Hemoglobin 28.8 PG (27.0-31.0) Mean Corpuscular Hemoglobin Concent 33.0 G/DL (32.0-36.0) Red Cell Distribution Width 11.6 % (11.6-14.8) Platelet Count 349 K/UL (150-450) Mean Platelet Volume 6.3 FL (6.5-10.1) L Neutrophils (%) (Auto) 52.3 % (45.0-75.0) Lymphocytes (%) (Auto) 34.6 % (20.0-45.0) Monocytes (%) (Auto) 10.4 % (1.0-10.0) H Eosinophils (%) (Auto) 1.5 % (0.0-3.0) Basophils (%) (Auto) 1.2 % (0.0-2.0) Chemistry Test 02/28/17 08:00 Sodium Level 139 MMOL/L (136-145) Potassium Level 3.5 MMOL/L (3.5-5.1) Chloride Level 105 MMOL/L (98-107) Carbon Dioxide Level 27 MMOL/L (21-32) Anion Gap 8 mmol/L (5-15) Blood Urea Nitrogen 25 mg/dL (7-18) H Creatinine 1.5 MG/DL (0.55-1.30) H Estimat Glomerular Filtration Rate 42.1 mL/min (>60) Glucose Level 93 MG/DL (74-106) Calcium Level 8.7 MG/DL (8.5-10.1) Accucheck pre op BS 86 (pt took insulin this am) Studies Pre-op Studies: EKG - NSR 82 bpm Risk Assessment & Plan Assessment: A&Ox3 Plan: MAC Status Change Before Surgery: No Pre-Antibiotics Given Within 1 Hr of Incision: No Sena Garrison CRNA Feb 28, 2017 08:46
--- NOTE | 2017-02-28 08:47 | Immediate Post-Op Evaluation ---
Immediate Post-Op Evalulation Immediate Post-Op Evalulation Procedure: right eye vitrectomy endolaser membrane peel Avastin inj Date of Evaluation: Feb 28, 2017 Time of Evaluation: 10:10 IV Fluids: LR Blood Products: 0 Estimated Blood Loss: < 3 ml Urinary Output: no reno Blood Pressure Systolic: 119 Blood Pressure Diastolic: 60 Pulse Rate: 84 Respiratory Rate: 16 O2 Sat by Pulse Oximetry: 100 Temperature (Fahrenheit): 98.5 Pain Score (1-10): 0 Nausea: No Vomiting: No Complications none Patient Status: awake, reacts, patent Hydration Status: adequate Given Within 1 Hr of Incision: No - none per surgeon Sena Garrison CRNA Feb 28, 2017 08:47
--- NOTE | 2017-02-28 08:48 | 48 Hour Post Anesthesia Eval ---
Post Anesthesia Evaluation Procedure: Right eye vitrectomy, Avastin inj Date of Evaluation: Feb 28, 2017 Time of Evaluation: 10:38 Blood Pressure Systolic: 115 0: 58 Pulse Rate: 82 Respiratory Rate: 14 Temperature (Fahrenheit): 98.5 O2 Sat by Pulse Oximetry: 100 Airway: patent Nausea: No Vomiting: No Pain Intensity: 0 Hydration Status: adequate Mental Status/LOC: patient returned to baseline Follow-up Care/Observations: post op BS 102 Post-Anesthesia Complications: none Follow-up care needed: patient intructions given Sena Garrison CRNA Feb 28, 2017 08:48
[2017-02-28] MEDS ORDERED: Sterile Water Irrig 1000ml IRRIG ONE (09:00)
[2017-02-28] MEDS ORDERED: Propofol 200mg/20ml IV ONE (09:00)
[2017-02-28] MEDS ORDERED: NS Irrig 1000ml ONE (09:00)
[2017-02-28] MEDS ORDERED: LR 1000ml ONE (09:00)
[2017-02-28] MEDS ORDERED: fentaNYL 100 mcg/2 mL IV ONE (09:00)
[2017-02-28] MEDS ORDERED: Lidocaine 1% MPF 10mg/ml 5ml ONE (09:00)
[2017-02-28] MEDS ORDERED: Midazolam 2mg/2ml Inj ONE (09:00)
--- NOTE | 2017-02-28 10:19 | Brief Operative Note ---
Immediate Post Operative Note Operative Note Chief Complaint: Streaks and clouds in vision Right eye Pre-op Diagnosis: Vitreous hemorrhage with diabetic traction elevation Right eye Procedure: PPV, membrane peel, endolaser 1476 spots, air-fluid exchange, Avastin injection (1476 spots) Right eye Post-op Diagnosis: same as pre-op plus - Posterior pre-existing round hole noted inferotemporally below traction band. Laser and air-fluid exchange performed Surgeon: iona Anesthesiologist: Meli (toe laster) Anesthesia: MAC Specimen: none Complications: none Condition: stable Fluids: none Estimated Blood Loss: none Implant(s) used?: No TERRY DHALIWAL Feb 28, 2017 10:18
--- NOTE | 2017-02-28 16:45 | Operative Note - Dictated ---
DATE OF OPERATION: 02/28/2017 PREOPERATIVE DIAGNOSIS: Vitreous hemorrhage with extensive retinal traction, right eye. POSTOPERATIVE DIAGNOSIS: Vitreous hemorrhage with extensive retinal traction, right eye. PROCEDURES: 1. Pars plana vitrectomy. 2. Extensive membrane peel. 3. Endolaser. 4. Air-fluid exchange. 5. Avastin injection, right eye. SURGEON: Raj Coe M.D. CLIENT SERVICES REPRESENTATIVE: None. ANESTHESIA: Local sedation. ANESTHESIOLOGIST: RIN Garrison. JUSTIFICATION FOR SURGERY: This 66-year-old female with a long history of diabetes and diabetic retinopathy, developed decreased vision in the right eye, associated with streaks of blood in the vision. She was found to have a significant vitreous hemorrhage with retinal traction. BRIEF NOTE: The patient was brought to the operating room and placed on OR table in supine position. After a time-out was performed and agreed upon by the staff, an initial monitoring secured by Anesthesia, retrobulbar and Van Lint blocks were given on the right side in the standard way. When the blocks had taken effect, she was prepped and draped in normal manner. A lid speculum was inserted into the right eye. Using a 23-gauge trocar system, cannulas were placed in all except infranasal quadrant. Infusion secured inferotemporally. Vitrectomy was begun posterior to the implant/iris plane. Vitreous adhesions were removed. A peripheral vitrectomy was done, followed by leaving a small vitreous skirt. The membranes were dissected towards the posterior pole. A posterior viewing lens was inserted and areas of preretinal fibrosis along both major arcades and out temporally between arcades were engaged and gently severed flush with the retina. Limited bleeding was controlled with the cautery. A small pre-existing round hole was noted above the supratemporal arcade. All traction around this hole was completely removed, so that the retina was not encumbered. With the traction removed, the Endolaser was brought into the eye and a power of 0.3 rhodes and duration of 0.2 seconds. This hole was completely surrounded with laser as were the areas of preexisting traction overlying the beds of retina, the DS of retina. Scleral depression was done and no peripheral breaks, tears, or detachments were seen. The laser was continued in the far periphery treating areas of minimal laser. A total of 1476 spots were applied. Because of the small hole discovered, it was elected to perform an air-fluid exchange. This was done to 95% fill. The 2 superior cannulas rather were then removed and the sclerotomy was closed with 8-0 Vicryl suture. The infusion line was disengaged and through the infusion cannula, Avastin, 1.25 mg was injected. The eye was reinflated and this sclerotomy also closed after removal of the cannula. The same suture material was used. Subconjunctival Decadron and gentamicin were then injected and Maxitrol and atropine ointments were instilled. The eye was patched and shielded. The patient was taken to recovery in excellent condition. There were no complications. Raj Coe M.D. DR: Darrian JOB#: [id number] CC:
--- NOTE | 2017-03-02 20:46 | Pre-op HX & Phy Repo 2 SIG ---
DATE OF ADMISSION: 02/28/2017 REASON FOR EVALUATION: I was by Dr. Raj Coe to see this 66-year-old female, who is going for elective surgery on the right eye. The patient has vitreous hemorrhage, right eye. Please see full Ophthalmology History and Physical by Dr. Raj Coe. The patient was evaluated. Chart was reviewed. PAST MEDICAL HISTORY/REVIEW OF SYSTEMS: Remarkable for insulin-dependent diabetes mellitus, hypothyroidism, obesity, hypertension, and peripheral diabetic neuropathy. Denies history of chest pain, palpitation, or heart attack. No history of stroke or seizures. No history of respiratory problem, asthma, or bronchitis. Denies history of renal failure. No history hepatitis or GI bleeding. SURGICAL HISTORY: History of eye surgery, x2, and thyroidectomy. FAMILY HISTORY: Father had diabetes and hypertension. Mother had hypertension. ALLERGIES: Not known. CURRENT MEDICATIONS: Include levothyroxine 75 mcg daily, Levemir twice a day, Crestor, amlodipine, NovoLog, baby aspirin 81 mg, benazepril 40 mg daily, calcium supplement, vitamin D, gabapentin, and hydralazine. PHYSICAL EXAMINATION: GENERAL: The patient is awake. VITAL SIGNS: Blood pressure 137/71, temperature 97.2, pulse 79, and O2 saturation 98% on room air. 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 LYMPH NODES: Not enlarged. HEENT: Head, normocephalic and atraumatic. Ears, clear. Eyes, full description per Dr. Raj Coe. Mouth, clear and moist. No dentures. No discharge. NECK: Supple. Scar on thyroidectomy. No jugular vein distention. Carotids artery +2. Trachea is midline. CHEST: No deformity or asymmetry. LUNGS: Clear to auscultation and percussion. No rales or rhonchi. HEART: Sounds distant. Regular. No ectopy. No murmur. ABDOMEN: Soft and benign. Obese. Liver spleen not enlarged. No rebound. EXTREMITIES: No edema. No varies. No calf tenderness. GENITOURINARY: No CVA tenderness. No dysuria. NERVOUS SYSTEM: Peripheral diabetic neuropathy of the lower extremities. LABORATORY AND DIAGNOSTIC DATA: ECG, sinus rhythm, 84 per minute, low-voltage QRS, possible anterior MA old, and prolonged QT interval. Laboratory, chemistry panel, blood sugar fasting 86 mg/dL. IMPRESSION: 1. Vitreous hemorrhage, right eye. 2. Insulin-dependent diabetes mellitus. 3. Hypothyroidism. 4. Hypertension, controlled. 5. Diabetic neuropathy, lower extremities. 6. Obesity. BMI is 34 kg/m2. PLAN: Pars plana vitrectomy, 23G membrane peeling, right eye per Dr. Raj Coe. CONCLUSION: The patient has multiple medical problem in this 66-year-old, and history of hypertension, hypothyroidism, diabetes mellitus, and obesity. The patient did not eat or drink from last night. The patient's EKG showed low-voltage QRS and possible anterior MA old. No clinical evidence of coronary heart disease. The patient's condition optimized for surgery. Thank you very much, Dr. Coe, for the privilege to participate in presurgical care of this interesting patient this. Jhoana Evans M.D. DR: MINH JOB#: [id number] CC:
--- NOTE | 2017-03-04 15:49 | Cardiology Report ---
APPROVED REPORT EKG Measurement Heart [id number] MS [id number] Normal sinus rhythm Low voltage QRS Cannot rule out Anterior infarct, age undetermined Abnormal ECG
== END 2017-02-28 11:30 | disposition home or self-care (01) ==
LOC: SUR 06:37
DX: H43.11 Vitreous hemorrhage, right eye (principal); E11.3599 Type 2 diabetes mellitus with proliferative diabetic retinopathy without macular edema, unspecified eye; I10 Essential (primary) hypertension; E78.00 Pure hypercholesterolemia, unspecified; E07.9 Disorder of thyroid, unspecified; Z79.4 Long term (current) use of insulin; E66.9 Obesity, unspecified; Z68.34 Body mass index [BMI] 34.0-34.9, adult; E03.9 Hypothyroidism, unspecified
CPT/HCPCS: 36415; 67025; 67039; 67041; 80048; 82962; 85025; 93005; J0171; J1100; J2250; J2704; J3010; J3301; J3490; J7120; J9035; 94003; 94150